=== PATIENT | female | born 1975 | race Caucasian/White ===

== ENCOUNTER 2022-07-11 08:13 | Emergency (ER) | payer OTHER ==
[~2022-07-11] VITALS: Ht 162.6 cm; Wt 107.0 kg
[~2022-07-11 08:13] MED LIST: CITALOPRAM HBR10 MG PO; MINIPRESS1 MG PO; PREDNISONE20 MG PO
[2022-07-11] MEDS ORDERED: PEPCID20 MG PO (09:23)
[2022-07-11] MEDS ORDERED: CETIRIZINE HCL10 MG PO (09:23)
== END 2022-07-11 09:35 | disposition home or self-care (01) ==
LOC: ED 08:13
DX: L50.8 Other urticaria (principal); Z88.0 Allergy status to penicillin
CPT/HCPCS: 99282